=== PATIENT | male | born 1965 | race Caucasian/White ===

== ENCOUNTER 2017-03-09 19:42 | Emergency (ER) | payer SELFPAY ==
--- NOTE | 2017-03-09 20:21 | EDM.PDOC ---
ED HPI GENERAL MEDICAL PROBLEM - General Chief Complaint: Lower Extremity Injury/Pain Stated Complaint: L KNEE PAINFUL & SWOLLEN Time Seen by Provider: 03/09/17 19:58 Source of Information: Reports: Patient History Limitations: Reports: No Limitations - History of Present Illness INITIAL COMMENTS - FREE TEXT/NARRATIVE: Patient is a 52-year-old male who presents to the ED complaining of left knee pain. Patient states this has been an ongoing issue. 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 States the pain is located to the medial aspect of the left knee worsened with palpation. Mild swelling is noted to the knee in the evening with being on his feet all day. States the swelling goes down quite quickly with laying flat. States as of recent has been taking excessive amounts of advil 400mg every 2 to4 hrs. Denies any GI complaints. Has history of hyperextending the knee in high school not requiring surgery. Patient denies any recent trauma to the knee. He denies any additional past medical history and currently taking no additional medications. Patient does not smoke or consume alcohol or use recreational drugs. He has no primary care provider here locally. Patient also denies the knee locking up with pending. Treatments [employer]OR: Reports: NSAIDS Left Knee Pain Score (Numeric/FACES): 3 - Related Data Allergies Allergy/AdvReac Type Severity Reaction Status Date / Time No Known Allergies Allergy Verified 03/09/17 20:03 Home Meds: Home Meds . [No Known Home Meds] 03/09/17 [History] Past Medical History - Past Surgical History GI Surgical History: Reports: Appendectomy Social & Family History - Tobacco Use Smoking Status *Q: Former Smoker Used Tobacco, but Quit: Yes Month Tobacco Last Used: 3 weeks ago - Caffeine Use Caffeine Use: Reports: Tea - Recreational Drug Use Recreational Drug Use: No Review of Systems - Review of Systems Review Of Systems: See Below Musculoskeletal: Reports: Joint Pain (Left knee), Joint Swelling (Mild with weightbearing) Skin: Denies: Erythema Neurological: Denies: Numbness, Tingling, Difficulty Walking ED EXAM, GENERAL - Physical Exam Exam: See Below Exam Limited By: No Limitations General Appearance: Alert, WD/WN, No Apparent Distress Ears: Hearing Grossly Normal Nose: Normal Inspection Throat/Mouth: Normal Voice, No Airway Compromise Neck: Normal Inspection, Supple Respiratory/Chest: No Respiratory Distress, Lungs Clear, Normal Breath Sounds, No Accessory Muscle Use Cardiovascular: Normal Peripheral Pulses, Regular Rate, Rhythm, No Murmur Peripheral Pulses: 3+: Posterior Tibial (L), Posterior Tibial (R) Extremities: Normal Inspection, Normal Range of Motion, No Pedal Edema, Normal Capillary Refill, Other (Tenderness noted to the medial aspect along the joint line. Pain is pinpoint. With provocative testing there is no locking of the knee or obvious joint laxity noted.) Neurological: Alert, Oriented, CN II-XII Intact, Normal Cognition, No Motor/ Sensory Deficits Psychiatric: Normal Affect, Normal Mood Skin Exam: Warm, Dry, Intact, Normal Color, No Rash Course - Vital Signs Last Recorded V/S: Last Vital Signs Temp 97.6 F 03/09/17 19:52 Pulse 80 03/09/17 19:52 Resp 18 03/09/17 19:52 BP 125/86 03/09/17 19:52 Pulse Ox 98 03/09/17 19:52 - Orders/Labs/Meds Orders: Active Orders 24 hr Category Date Time Status Knee Min 4V Lt [CR] Stat Exams 03/09/17 20:07 Taken - Re-Assessments/Exams Free Text/Narrative Re-Assessment/Exam: Ordered x-ray of the left knee with weightbearing x-ray obtained. 03/09/17 20:27 X-ray of the left knee fairly unremarkable. No significant arthritic changes present. No acute bony abnormalities noted. Will discharge patient home within instructions as documented. Departure - Departure Time of Disposition: 20:28 Disposition: Home, Self-Care 01 Condition: Good Clinical Impression: Left medial knee pain - Discharge Information Referrals: Praveena Freedman NP [Primary Care Provider] - Aryan Palomo MD [Physician] - Forms: ED Department Discharge Additional Instructions: As discussed x-ray of the left knee did not reveal any acute bony abnormalities and or significant arthritic changes. Treatment at this point is to refrain from any activities that worsening pain. Can utilize ice to the affected area as needed. Take tylenol 650mg every 4 to 6 hrs for pain not to exceed 3000mg's in a 24hr pattern. May use aleve 1 to two tabs twice a day. Call and make an appt with Dr. Palomo to be evaluated in his clinic for further examination and treatment. Return to the E.D. for any new or worsening symptoms. - My Orders Last 24 Hours: My Active Orders 03/09/17 20:07 Knee Min 4V Lt [CR] Stat - Assessment/Plan Last 24 Hours: My Active Orders 03/09/17 20:07 Knee Min 4V Lt [CR] Stat
--- NOTE | 2017-03-11 08:34 | CR ---
Left knee: Four views of the left knee were obtained. Comparison: No prior study. Medial and lateral joint spaces are preserved. No joint effusion is identified. No acute fracture or other bony abnormality is seen. Impression: 1. No bony abnormality is identified on left knee exam. Diagnostic code #1 MTDD
== END 2017-03-09 20:47 | disposition home or self-care (01) ==
LOC: JD.ED 19:42
DX: M25.562 Pain in left knee (principal); Z87.891 Personal history of nicotine dependence
CPT/HCPCS: 73564-26-LT; 73564-LT; 99283